=== PATIENT | female | born 1935 | race African-American/Black ===

== ENCOUNTER 2016-08-04 09:04 | Inpatient (IN) | payer MEDICARE ==
--- NOTE | 2016-08-03 17:17 | MH ---
cc: Leigha CAMPBELL M.D. 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 ADMISSION HISTORY AND PHYSICAL This pleasant 80-year-old female is being admitted today for right total knee arthroplasty due to severe painful arthritic degeneration. PAST MEDICAL HISTORY Other past history: 1. The patient has a history of rheumatoid arthritis. 2. Diabetes. 3. Arthritis. 4. Hypertension. 5. Glaucoma. CURRENT MEDICATIONS Include: 1. Fluticasone. 2. Tizanidine. 3. Amlodipine. 4. Lovastatin. 5. Atenolol. 6. Hydrocodone. 7. Lefludamide. 8. Prednisone 5 mg a day. 9. Metformin. 10. Fosamax. 11. Vitamin D. PAST SURGERIES Include: 1. Cataract surgery. 2. . 3. Colonoscopies. 4. Eye surgery. 5. Left total knee arthroplasty. 6. hysterectomy. 7. Myringotomy. REVIEW OF SYSTEMS Noncontributory. FAMILY HISTORY Noncontributory. SOCIAL HISTORY Does not smoke or drink. ALLERGIES HAS ALLERGIES TO LOULOU INHIBITOR, HYDROCHLOROTHIAZIDE, LISINOPRIL, IBUPROFEN, PENICILLIN, AND DICLOFENAC. PHYSICAL EXAMINATION GENERAL: We find a 80-year-old female, well-developed, well-nourished, alert and oriented times three complains of pain her right knee. VITAL SIGNS: Blood pressure 136/72, pulse 85 and regular, respirations 18, temperature 98.4, pulse oximetry 97% on room air. HEENT: Eyes PERRL, EOMI. Ears, nose, mouth clear. NECK: Supple. LUNGS: Clear. HEART: Regular rate. ABDOMEN: Soft. Positive bowel sounds. Nontender. EXTREMITIES: Reveal her right knee to have genu valgus deformity with 5 degrees loss of full extension and 80 degrees of flexion. She is neurovascularly intact to her toes. IMPRESSION At this time is severe painful rheumatoid arthritic degeneration right knee. PLAN Admission for right total knee arthroplasty today. The patient understands the procedure well, understands the use Hibiclens scrub and Bactroban preoperatively and plans on going to rehab after surgery. J. MD OLGA LIDIA Mac/KK /4:44 PM /5:04 PM
[~2016-08-04] VITALS: Ht 162.6 cm; Wt 68.5 kg
[2016-08-06] MEDS ORDERED: TIMO5SOL LEFT EYE (15:50)
[2016-08-06] MEDS ORDERED: METF500T PO (15:50)
[2016-08-06] MEDS ORDERED: ASPI1TAB69 PO (15:50)
[2016-08-06] MEDS ORDERED: PRED5TAB PO (15:50)
[2016-08-06] MEDS ORDERED: D-20TAB3 PO (15:50)
[2016-08-06] MEDS ORDERED: REFR0.5D4 RIGHT EYE (15:50)
[2016-08-06] MEDS ORDERED: FOLI1TAB4 PO (15:50)
[2016-08-06] MEDS ORDERED: LOVA40TA PO (15:50)
[2016-08-09] MEDS: CHLORHEXIDINE GLUCONATE 4% SOLN 120 ML BTL TOPICAL SCH (08:50)
[2016-08-09] MEDS ORDERED: CHLORHEXIDINE GLUCONATE 2 % 1 PACK (2 CLOTHS) TOPICAL PRN (09:15)
[2016-08-09] MEDS ORDERED: VANCOMYCIN 1000 MG/NS 250 ML (for <70 kg) IV SCH ×2 (09:15)
[2016-08-09] MEDS ORDERED: METOPROLOL TARTRATE 25 MG TAB PO PRN (09:15)
[2016-08-09] MEDS ORDERED: LACTATED RINGER'S 1000 ML IV PRN (09:15)
[2016-08-09] MEDS ORDERED: SODIUM CHLORID 0.9% 500 ML IV PRN (09:15)
[2016-08-09] MEDS ORDERED: INSULIN HUMAN REGULAR 1,000 UNITS/10 ML VIAL SQ PRN (09:15)
[2016-08-09] MEDS ORDERED: POVIDONE IODINE 5% (ANTISEPSIS KIT) 4 APPLICATIONS EACH NARE PRN (09:15)
[2016-08-09] MEDS ORDERED: CLINDAMYCIN 900 MG/NS 100 ML IV SCH ×2 (09:15)
[2016-08-09] MEDS ORDERED: PROPOFOL 200 MG/20 ML AMP IV ONE (09:23)
[2016-08-09] MEDS ORDERED: ePHEDrine/NS 25 MG/5 ML SYR IV ONE (09:23)
[2016-08-09] MEDS ORDERED: ONDANSETRON HCL 4 MG/2 ML VIAL IV PUSH ONE (09:24)
[2016-08-09] MEDS ORDERED: LACTATED RINGER'S 1000 ML INJ 1,000 ML IV ONE (09:24)
[2016-08-09] MEDS ORDERED: PHENYLEPH/NS 1000 MCG/10 ML SYR IV ONE (09:24)
[2016-08-09] MEDS ORDERED: NEOSTIGMINE 3 MG/3 ML SYR IV ONE (09:24)
[2016-08-09] MEDS ORDERED: BUPIVACAINE HCL PF 0.5% 30 ML VIAL NERV BLOCK ONE (09:36)
[2016-08-09] MEDS ORDERED: LEFL20TA11 PO (09:44)
[2016-08-09] MEDS ORDERED: HYDR-4107 PO (09:44)
[2016-08-09 09:49] VITALS: BP 149/70; PULSE 84; RESP 20; TEMP 98.1; O2SAT 93
[2016-08-09] MEDS ORDERED: EXPAREL PERI-ARTICULAR INJECTION (TOTAL VOL. 100 ML) P-ARTICULR SCH ×2 (10:00)
[2016-08-09] MEDS ORDERED: TRANEXAMIC ACID IV SCH ×2 (10:00→16:00)
[2016-08-09] MEDS ORDERED: SODIUM CHLORIDE 0.9% IV SCH ×2 (10:00→16:00)
[2016-08-09] MEDS ORDERED: AMLO5TAB2 PO (10:18)
[2016-08-09] MEDS ORDERED: OFLO0.3D9 OT (10:18)
[2016-08-09] MEDS ORDERED: ALEN1TAB48 PO (10:18)
[2016-08-09] MEDS ORDERED: methylPREDNISolone SOD SUCC 125 MG/2 ML VIAL ONE (11:28)
[2016-08-09] MEDS ORDERED: ACETAMINOPHEN 1000 MG/100 ML VIAL IV ONE (11:28)
[2016-08-09] MEDS ORDERED: FAMOTIDINE 20 MG/2 ML VIAL ONE (11:28)
[2016-08-09] MEDS ORDERED: TRANEXAMIC ACID INJ 0 MG in SODIUM CHLORIDE 0.9% INJ 100 ML IV SCH (12:00)
[2016-08-09] MEDS ORDERED: SODIUM CHLORIDE 0.9% FLUSH 5 ML FLUSH IVF PRN (12:00)
[2016-08-09] MEDS ORDERED: ACETAMINOPHEN 325 MG TAB PO PRN (12:00)
[2016-08-09] MEDS ORDERED: MORPHINE SULFATE 30 MG/30 ML PCA IV SCH (12:00)
[2016-08-09] MEDS ORDERED: diphenhydrAMINE HCL 50 MG/ML VIAL IV PRN (12:00)
[2016-08-09] MEDS ORDERED: ALENDRONATE SODIUM 70 MG TAB PO SCH (12:00)
[2016-08-09] MEDS ORDERED: NALOXONE HCL 0.4 MG/ML AMP IV PRN ×2 (12:00)
[2016-08-09] MEDS ORDERED: ONDANSETRON HCL 4 MG/2 ML VIAL IVP PRN (12:00)
[2016-08-09] MEDS ORDERED: Post-op Orders (for Pharmacy) MISC XX ONE (12:00)
[2016-08-09] MEDS ORDERED: ACETAMINOPHEN/HYDROcodone 325 MG/7.5 MG TAB PO PRN (12:00)
[2016-08-09] MEDS ORDERED: CPMMACHINE (12:01)
[2016-08-09] MEDS ORDERED: MISC-163 (12:01)
[2016-08-09] MEDS ORDERED: WALKER WHEELS/F1 MIS (12:02)
[2016-08-09] MEDS ORDERED: MIDAZOLAM HCL 2 MG/2 ML VIAL ONE (12:04)
[2016-08-09] MEDS ORDERED: GENTAMICIN SULFATE 80 MG/2 ML VIAL IRRIGATION ONE (13:34)
[2016-08-09] MEDS ORDERED: PCA - TOTAL MG DILAUDID DELIVERED PER SHIFT SCH (14:00)
[2016-08-09] MEDS ORDERED: MORPHINE SULFATE 4 MG/ML INJ ONE (16:19)
[2016-08-09] MEDS: LACTATED RINGER'S 1000 ML INJ 1,000 ML IV SCH (17:05)
--- NOTE | 2016-08-09 17:12 | RADRPT ---
EXAM DATE/TIME: 08/09/2016 16:38 [place] COMPARISON: No previous studies available for comparison. INDICATIONS : Post operative right knee. MEDICAL HISTORY : None. SURGICAL HISTORY : None. ENCOUNTER: Initial ACUITY: 1 day PAIN SCORE: Non-responsive. LOCATION: Right knee. FINDINGS: AP and lateral views of the right knee obtained and demonstrate patient is status post arthroplasty. The femoral and tibial components are intact and in normal alignment. There are postoperative changes involving the patella. There is anterior soft tissue prominence CONCLUSION: Expected postsurgical changes status post arthroplasty. Brandon Bush MD on August 09, 2016 at 17:10 Board Certified Radiologist. This report was verified electronically.
[2016-08-09] MEDS ORDERED: DO NOT ADM ANY ANTICOAGULANT DRUGS PRN (17:15)
[2016-08-09 20:00] VITALS: BP 130/70; PULSE 82; RESP 17; TEMP 96.6; O2SAT 98
[2016-08-09 20:04] VITALS: O2SAT 93
[2016-08-09] MEDS: SODIUM CHLORIDE 0.9% FLUSH 5 ML FLUSH IVF SCH (21:00)
[2016-08-09] MEDS ORDERED: OFLOXACIN OT SCH (21:00)
[2016-08-09] MEDS ORDERED: TEMAZEPAM 15 MG CAP PO PRN (21:00)
[2016-08-09] MEDS: CHOLECALCIFEROL (VIT D3) 1000 UNIT TAB PO SCH (21:54)
[2016-08-09] MEDS: CARBOXYMETHYLCELL SOD 0.5% OPTH SOLN 15 ML BTL RIGHT EYE SCH (21:54)
[2016-08-09] MEDS: PCA - TOTAL MG MORPHINE DELIVERED PER SHIFT SCH (21:55)
[2016-08-09] MEDS: CLINDAMYCIN INJ 900 MG in SODIUM CHLORIDE 0.9% INJ 100 ML IV SCH (21:55)
[2016-08-10] VITALS (8 sets, daily range): BP systolic 113–144; BP diastolic 54–68; PULSE 75–86; RESP 16–20; TEMP 98.3–99.1; O2SAT 95–100
[2016-08-10] MEDS: LACTATED RINGER'S 1000 ML INJ 1,000 ML IV SCH ×2 (00:21→12:07)
[2016-08-10] MEDS: CLINDAMYCIN INJ 900 MG in SODIUM CHLORIDE 0.9% INJ 100 ML IV SCH ×2 (04:20→12:16)
[2016-08-10] MEDS: PCA - TOTAL MG MORPHINE DELIVERED PER SHIFT SCH ×3 (05:23→20:57)
[2016-08-10 06:56] LABS: HEMATOCRIT 25.7 % (35.0-46.0); REVIEW FLAG FINAL
[2016-08-10] MEDS ORDERED: LEFLUNOMIDE PO SCH (09:00)
[2016-08-10] MEDS: TIMOLOL MALEATE 0.25% OPHT SOLN 5 ML BTL LEFT EYE SCH (09:00)
[2016-08-10] MEDS: SODIUM CHLORIDE 0.9% FLUSH 5 ML FLUSH IVF SCH ×2 (09:00→20:56)
--- NOTE | 2016-08-10 09:02 | PD.CONS ---
HPI Service [facility] Hospitalists Consult Requested By Dr. Rehan Hernandez Reason for Consult Medical Management Primary Care Physician Dr. Norberto Norton Diagnoses: History of Present Illness Mrs. Chappell is a pleasant 80 y/o female with HTN, diabetes, hyperlipidemia and Rheumatoid arthritis. Pt was admitted on 08/09/16 for an elective right total knee arthroplasty with Dr. Hernandez. [facility] Hospitalist team was consulted to help manage the pts chronic medical issues. Pt is seen post-operatively and is without any specific complaints. She reports that her pain is currently controlled. She denies any chest pain, SOB, abd pain, nausea/vomiting. Review of Systems Constitutional: DENIES: Fever, Chills Eyes: DENIES: Vision loss Ears, nose, mouth, throat: DENIES: Hearing loss Respiratory: DENIES: Cough, Shortness of breath Cardiovascular: DENIES: Chest pain, Palpitations, Lower Extremity Edema Gastrointestinal: DENIES: Abdominal pain, Constipation, Diarrhea, Nausea, Vomiting Genitourinary: DENIES: Hematuria Musculoskeletal: COMPLAINS OF: Joint pain Integumentary: DENIES: Rash Neurologic: DENIES: Headache Psychiatric: DENIES: Confusion Past Family Social History Past Medical History HTN Diabetes Hyperlipidemia Rheumatoid arthritis Ostearthritis Glaucoma Past Surgical History Cataract surgery Colonoscopies Left total knee arthroplasty Vaginal hysterectomy Myringotomy Reported Medications -Alendronate (Alendronate Sodium) 70 Mg Tab 70 Mg PO Q7D -Amlodipine 5 Mg PO DAILY -Leflunomide 20 Mg PO DAILY -Aspirin 81 Mg Tabdr 81 Mg PO DAILY -Lovastatin 40 Mg PO DAILY -Metformin 500 Mg PO DAILY -Prednisone 5 Mg PO DAILY -Timolol Opth Drops 0.25 % Soln 1 Drop LEFT EYE DAILY Ofloxacin Otic Drops 0.3 % Drops 3 Drop OT BID Refresh Tears Opth Drops (Carboxymethylcellulose Sodium Opth Drops) 0.5% Drops 1 Drop RIGHT EYE TID D-2000 Maximum Strength (Cholecalciferol) 2,000 Unit Tab 2,000 Units PO BID Hydrocodone-Acetaminophen 5-300 Mg Tab 1 Tab PO Q4H PRN Allergies: Coded Allergies: LOULOU Inhibitors (Verified Adverse Reaction, Severe, Swelling, 08/09/16) Diclofenac (Verified Adverse Reaction, Severe, Swelling, 08/09/16) Hydrochlorothiazide (Verified Adverse Reaction, Severe, Swelling, 08/09/16) Penicillin (Verified Adverse Reaction, Severe, rash and itching, 08/09/16) Uncoded Allergies: NSAID (Adverse Reaction, Severe, Swelling, 07/12/13) Family History Noncontributory Social History Hx of tobacco use Denies any alcohol or illicit drug use Physical Exam Vital Signs Vital Signs Date Time Temp Pulse Resp B/P Pulse Ox O2 Delivery O2 Flow Rate FiO2 08/10/16 08:18 97 Nasal Cannula 2.00 08/10/16 05:23 16 08/10/16 03:45 98.9 79 16 144/63 98 08/10/16 00:30 98.3 81 16 121/63 100 08/09/16 21:55 18 08/09/16 20:04 93 Nasal Cannula 2.00 08/09/16 20:00 96.6 82 17 130/70 98 08/09/16 19:00 84 14 127/68 95 Nasal Cannula 2 08/09/16 18:00 93 14 136/72 94 Nasal Cannula 2 08/09/16 17:44 16 08/09/16 17:00 93 14 136/75 93 Nasal Cannula 2 08/09/16 16:45 93 14 144/77 93 Nasal Cannula 2 08/09/16 16:30 86 14 139/72 95 Nasal Cannula 2 08/09/16 16:15 90 14 140/76 94 Nasal Cannula 2 08/09/16 16:00 98.7 103 14 139/76 91 Nasal Cannula 2 08/09/16 09:49 98.1 84 20 149/70 93 Physical Exam GENERAL: This is a well-nourished, well-developed patient, in no apparent distress. HEENT: Atraumatic. Normocephalic. No temporal or scalp tenderness.No scleral icterus. Airway patent. NECK: Trachea midline, supple, nontender. CARDIO: Regular. RESP: CTA bilaterally. No wheezes, rales, or rhonchi. ABD: +BS, soft, non-tender, nondistended. EXT: Right knee bandages are c/d/i NEURO: Awake and alert. Motor and sensory grossly within normal limits. Normal speech. Laboratory Laboratory Tests Test 08/09/16 08/10/16 12:57 05:35 Blood Type O POSITIVE Antibody Screen NEGATIVE Hemoglobin 8.2 Hematocrit 25.7 Result Diagram: 08/10/16 0535 Imaging Last Impressions Knee X-Ray 08/09/16 1153 Signed Impressions: Service Date/Time: Tuesday, August 09, 2016 16:38 - CONCLUSION: Expected postsurgical changes status post arthroplasty. Brandon Bush MD Assessment and Plan Problem List: (1) Osteoarthritis of right knee Status: Chronic Plan: - Pt s/p right total knee arthroplasty on 08/09/[address] Hernandez - Post-op pain control per Ortho - Constipation precautions - PT daily - IS - DVT prophylaxis (2) Status post total right knee replacement Status: Acute Plan: - See above (3) Hypertension Status: Chronic Plan: - Home meds, Amlodipine, has been resumed - BP is stable - Monitor (4) DM (diabetes mellitus) Status: Chronic Plan: - Metformin was resumed - NovoLog SSI - Accu checks (5) Rheumatoid arthritis Status: Chronic Plan: - Home meds resumed (6) Glaucoma Status: Chronic Assessment and Plan Patient examined. Assessment and plan formulated with Cielo Luu PA-C. I agree with the above. Problem Qualifiers (1) Osteoarthritis of right knee: Qualified Code: M17.11 - Primary osteoarthritis of right knee (2) DM (diabetes mellitus): Cielo Luu Aug 10, 2016 09:02 Juan David Briceno DO August 21, 2016 10:43
[2016-08-10] MEDS: CHLORHEXIDINE GLUCONATE 4% SOLN 120 ML BTL TOPICAL SCH (09:15)
[2016-08-10] MEDS: PRAVASTATIN SOD 40 MG TAB PO SCH (10:07)
[2016-08-10] MEDS: predniSONE 5 MG TAB PO SCH (10:08)
[2016-08-10] MEDS: ASPIRIN EC 81 MG TABEC PO SCH (10:08)
[2016-08-10] MEDS: CHOLECALCIFEROL (VIT D3) 1000 UNIT TAB PO SCH ×2 (10:08→20:56)
[2016-08-10] MEDS: metFORMIN HCL 500 MG TAB PO SCH (10:08)
[2016-08-10] MEDS: amLODIPine BESYLATE 5 MG TAB PO SCH (10:08)
[2016-08-10] MEDS: CARBOXYMETHYLCELL SOD 0.5% OPTH SOLN 15 ML BTL RIGHT EYE SCH ×3 (10:09→17:08)
[2016-08-10] MEDS: INSULIN ASPART SUPPLEMENTAL SCALE SQ SCH ×3 (11:00→20:57)
--- NOTE | 2016-08-10 12:53 | PD.ORT.PN ---
Subjective Subjective Remarks pt fairly comfortable. Objective Vitals Vital Signs Date Time Temp Pulse Resp B/P Pulse Ox O2 Delivery O2 Flow Rate FiO2 08/10/16 12:05 17 08/10/16 08:18 97 Nasal Cannula 2.00 08/10/16 08:00 98.9 75 19 124/58 97 08/10/16 05:23 16 08/10/16 03:45 98.9 79 16 144/63 98 08/10/16 00:30 98.3 81 16 121/63 100 08/09/16 21:55 18 08/09/16 20:04 93 Nasal Cannula 2.00 08/09/16 20:00 96.6 82 17 130/70 98 08/09/16 19:00 84 14 127/68 95 Nasal Cannula 2 08/09/16 18:00 93 14 136/72 94 Nasal Cannula 2 08/09/16 17:44 16 08/09/16 17:00 93 14 136/75 93 Nasal Cannula 2 08/09/16 16:45 93 14 144/77 93 Nasal Cannula 2 08/09/16 16:30 86 14 139/72 95 Nasal Cannula 2 08/09/16 16:15 90 14 140/76 94 Nasal Cannula 2 08/09/16 16:00 98.7 103 14 139/76 91 Nasal Cannula 2 I/O 08/09/16 08/09/16 08/09/16 08/10/16 08/10/16 08/10/16 07:00 15:00 23:00 07:00 15:00 23:00 Intake Total 1730 ml 240 ml 1842 ml Output Total 625 ml Balance 1105 ml 240 ml 1842 ml Intake Oral 530 ml 240 ml IV Total 200 ml 1842 ml Other 1000 ml Output Urine Total 475 ml Estimated Blood Loss 150 ml # Voids 3 # Bowel Movements 0 0 Result Diagram: 08/10/16 0535 Objective Remarks dressing dry and intact. No calf tenderness. Assessment & Plan Ortho Post Op Day #: 1 Problem List: Assessment and Plan OOB, PT, wound care. Leigha Hernandez MD Aug 10, 2016 12:53
[2016-08-10] MEDS: ENOXAPARIN SODIUM 30 MG/0.3 ML SYRINGE SQ SCH (15:12)
[2016-08-10] MEDS: ACETAMINOPHEN/HYDROcodone 325 MG/7.5 MG TAB PO PRN (15:12)
[2016-08-10] MEDS: DOCUSATE SODIUM 100 MG CAP PO SCH (20:56)
[2016-08-10] MEDS: MULTIVITAMINS/MINERALS THERAPEUTIC TAB PO SCH (20:56)
--- NOTE | 2016-08-10 22:08 | MP ---
cc: Jim HERNANDEZ. DATE OF SURGERY: 08/09/2016 PREOPERATIVE DIAGNOSIS: Severe rheumatoid arthritic degeneration with genu valgus deformity, right knee, loss of motion. POSTOPERATIVE DIAGNOSIS: Severe rheumatoid arthritic degeneration with genu valgus deformity, right knee, loss of motion. OPERATION: Right total knee arthroplasty using Consensus knee system, size 4 femur, 2 tibia, 10 standard insert with a #2 7.5 patella, two batches of cobalt blue cement along with lysis of adhesions and excision of osteophytes from right knee to allow increased motion. Preoperative range of motion was 45 degrees of flexion to minus 20 degrees of extension. SURGEON: Dr. Rehan Hernandez ANESTHESIA: General intubation and block. [place] DECORATOR: NATHANIEL Sanchez PROCEDURE: After successful induction of anesthesia, the patient is placed on the operating room table in the supine position. The knee is prepped and draped in the usual manner. A tourniquet is inflated at the upper thigh and set to 300 mmHg pressure after exsanguination of the lower extremity. A longitudinal incision is made extending from 3 inches proximal to the superior pole of the patella, across the patella in longitudinal fashion, and down past the insertion of the tibial tubercle into the proximal tibia. The incision is carried down through subcutaneous tissue along the medial aspect of the patella and retinaculum, down through the capsule to expose the knee joint. The patella and patellar tendon are freed up enough to allow the patella to be inverted and retracted off the lateral side of the knee joint. The knee joint is left exposed. Small osteophytes are removed. All soft tissue is removed to allow proper position of the femoral and tibial cutting jig guide. The first femoral jig is then inserted along the distal end of the femur after first measuring to decide whether this is a small, medium, or large component. The notch is then drilled and the tibial cutting guide inserted into the femoral cutting guide, along with the ankle brace to allow for proper measurement of the tibial cutting surface that needed to be resected. Pins are inserted into the tibial cutting jig and femoral cutting jig to hold them in place. An oscillating saw is then used to resect the surface of the tibia. The surface of the tibia is then completely removed using sharp and blunt dissection. The anterior and posterior cuts of the femur are then made as well using an oscillating saw through the cutting guide. All guides are then removed and the varus/valgus angulation cutting guide applied to the femur for proper measurement of the proper amount of valgus. The anterior cutting guide for the femur is then inserted at the anterior femoral cuts made. Next, the first block trial is inserted into the femur to allow for proper condyle drill holes to be made which are then made followed by removal of the bone between the condyles using an oscillating saw as well as the bone removed at the most posterior surface of the condyle. After this, the guide is removed and the chamfer cuts made using the chamfer cutting guide from both anterior and posterior. Next, the femoral trial is then inserted, the tibial surface reflected anterior to expose the tibial surface and a tibial stem guide is inserted after first measuring for a standard, standard plus, large, or large plus surface to be used. After the stem is impacted the trial tibial surface is applied followed by the trial meniscal components. After full range of motion is found with the appropriate length meniscal components varying the patella is prepared by resecting the posterior aspect of the patella using an oscillating saw, inserting a trial. The trial is then removed and the cruciate cutting guide applied using the bur to cut the cruciate cuts. After cruciate cuts are made all trials are removed. The wound is irrigated copiously with antibiotic solution and Water Pik and the actual components inserted into place using: Consensus knee system, size 4 femur, 2 tibia, 10 standard insert with a #2 7.5 patella, two batches of cobalt blue cement. After the cement has hardened and the components are found to have full range of motion with no instability, the tourniquet is only used for cementing, total tourniquet time being 12 minutes at 300 mmHg pressure. Meticulous hemostasis achieved, 120 cc of Exparel used on the knee for extra pain control. The deep fascia approximated with running #2 Quill, subcutaneous tissue approximated using interrupted running 2 and 4-0 Monocryl suture and Steri-Strips, sterile dressing and knee immobilizer. During the procedure to increase the range of motion, the patient had to have medial collateral ligament released, the lateral collateral ligament, the posterior capsule had to be released as well as the posterior cruciate ligament to allow increase in motion. This necessitated an extra 45 minutes of surgical time. The deep fascia approximated with running #2 Quill, subcutaneous tissue approximated using interrupted running, 2-0 Monocryl suture, Steri-Strips, sterile dressing and knee immobilizer. No drain utilized. Estimated blood loss 150 cc. Sponge and suture count correct. The patient tolerated the procedure well and left the operating room in satisfactory condition. J. MD OLGA LIDIA Mac/ANUPAM /3:40 PM /9:45 PM
[2016-08-11 00:43] VITALS: BP 161/71; PULSE 106; RESP 17; TEMP 96.3; O2SAT 95
[2016-08-11] MEDS: LACTATED RINGER'S 1000 ML INJ 1,000 ML IV SCH ×3 (01:23→20:35)
[2016-08-11] MEDS: ENOXAPARIN SODIUM 30 MG/0.3 ML SYRINGE SQ SCH ×2 (03:08→14:51)
[2016-08-11] MEDS: PCA - TOTAL MG MORPHINE DELIVERED PER SHIFT SCH ×3 (04:12→20:35)
[2016-08-11] MEDS: INSULIN ASPART SUPPLEMENTAL SCALE SQ SCH ×4 (06:43→20:35)
[2016-08-11] MEDS: ACETAMINOPHEN/HYDROcodone 325 MG/7.5 MG TAB PO PRN ×4 (06:50→20:21)
[2016-08-11 06:53] LABS: HEMATOCRIT 26.3 % (35.0-46.0); REVIEW FLAG FINAL
[2016-08-11 08:00] VITALS: BP 131/59; PULSE 102; RESP 18; TEMP 99.1; O2SAT 93
--- NOTE | 2016-08-11 08:09 | PD.ORT.PN ---
Subjective Subjective Remarks pt fairly comfortable. Objective Vitals Vital Signs Date Time Temp Pulse Resp B/P Pulse Ox O2 Delivery O2 Flow Rate FiO2 08/11/16 00:43 96.3 106 17 161/71 95 08/10/16 19:33 98.3 86 18 128/68 96 08/10/16 18:18 95 Nasal Cannula 2.00 08/10/16 17:00 99.1 82 20 113/54 95 08/10/16 12:05 17 08/10/16 12:00 98.9 76 19 127/62 98 08/10/16 08:18 97 Nasal Cannula 2.00 I/O 08/10/16 08/10/16 08/10/16 08/11/16 08/11/16 08/11/16 07:00 15:00 23:00 07:00 15:00 23:00 Intake Total 240 ml 3242 ml 360 ml 480 ml Balance 240 ml 3242 ml 360 ml 480 ml Intake Oral 240 ml 1400 ml 360 ml 480 ml IV Total 1842 ml # Voids 3 5 4 3 # Bowel Movements 0 0 0 0 Result Diagram: 08/11/16 0550 Objective Remarks dressing dry and intact. No calf tenderness. In bed at moment. Assessment & Plan Ortho Post Op Day #: 2 Problem List: Assessment and Plan OOB, PT, wound care. Leigha Hernandez MD Aug 11, 2016 08:09
[2016-08-11] MEDS: SODIUM CHLORIDE 0.9% FLUSH 5 ML FLUSH IVF SCH ×2 (09:00→20:22)
[2016-08-11] MEDS: TIMOLOL MALEATE 0.25% OPHT SOLN 5 ML BTL LEFT EYE SCH (09:00)
[2016-08-11] MEDS: CHOLECALCIFEROL (VIT D3) 1000 UNIT TAB PO SCH ×2 (09:17→20:22)
[2016-08-11] MEDS: ASPIRIN EC 81 MG TABEC PO SCH (09:18)
[2016-08-11] MEDS: MULTIVITAMINS/MINERALS THERAPEUTIC TAB PO SCH ×2 (09:18→20:22)
[2016-08-11] MEDS: metFORMIN HCL 500 MG TAB PO SCH (09:18)
[2016-08-11] MEDS: amLODIPine BESYLATE 5 MG TAB PO SCH (09:18)
[2016-08-11] MEDS: predniSONE 5 MG TAB PO SCH (09:18)
[2016-08-11] MEDS: PRAVASTATIN SOD 40 MG TAB PO SCH (09:18)
[2016-08-11] MEDS: DOCUSATE SODIUM 100 MG CAP PO SCH ×2 (09:18→20:22)
[2016-08-11] MEDS: CARBOXYMETHYLCELL SOD 0.5% OPTH SOLN 15 ML BTL RIGHT EYE SCH ×3 (09:19→18:00)
[2016-08-11] MEDS ORDERED: BACITRACIN OINT 0.9 GM PKT TOP PRN (10:15)
[2016-08-11 12:00] VITALS: BP 131/62; PULSE 96; RESP 18; TEMP 96.1; O2SAT 94
[2016-08-11] MEDS ORDERED: LACTULOSE SYRUP 20 GM/30 ML CUP PO PRN (15:30)
[2016-08-11 15:54] VITALS: BP 114/52; PULSE 87; RESP 14; TEMP 99.4; O2SAT 98
[2016-08-11 20:12] VITALS: BP 125/61; PULSE 87; RESP 17; TEMP 98.3; O2SAT 92
[2016-08-12] VITALS (7 sets, daily range): BP systolic 110–142; BP diastolic 54–74; PULSE 62–113; RESP 16–18; TEMP 97–99.4; O2SAT 93–98
[2016-08-12] MEDS: PCA - TOTAL MG MORPHINE DELIVERED PER SHIFT SCH ×3 (00:58→21:01)
[2016-08-12] MEDS: ENOXAPARIN SODIUM 30 MG/0.3 ML SYRINGE SQ SCH ×2 (03:42→13:26)
[2016-08-12] MEDS: INSULIN ASPART SUPPLEMENTAL SCALE SQ SCH ×4 (06:15→21:01)
[2016-08-12] MEDS ORDERED: BISACODYL 10 MG SUPP RECTAL PRN (07:45)
[2016-08-12] MEDS: SODIUM CHLORIDE 0.9% FLUSH 5 ML FLUSH IVF SCH ×2 (09:00→21:00)
[2016-08-12] MEDS: CARBOXYMETHYLCELL SOD 0.5% OPTH SOLN 15 ML BTL RIGHT EYE SCH ×3 (09:00→17:41)
[2016-08-12] MEDS: TIMOLOL MALEATE 0.25% OPHT SOLN 5 ML BTL LEFT EYE SCH (09:00)
[2016-08-12] MEDS: amLODIPine BESYLATE 5 MG TAB PO SCH (09:07)
[2016-08-12] MEDS: metFORMIN HCL 500 MG TAB PO SCH (09:07)
[2016-08-12] MEDS: predniSONE 5 MG TAB PO SCH (09:07)
[2016-08-12] MEDS: CHOLECALCIFEROL (VIT D3) 1000 UNIT TAB PO SCH ×2 (09:07→21:01)
[2016-08-12] MEDS: ASPIRIN EC 81 MG TABEC PO SCH (09:08)
[2016-08-12] MEDS: DOCUSATE SODIUM 100 MG CAP PO SCH ×2 (09:08→21:01)
[2016-08-12] MEDS: MULTIVITAMINS/MINERALS THERAPEUTIC TAB PO SCH ×2 (09:08→21:01)
[2016-08-12] MEDS: ACETAMINOPHEN/HYDROcodone 325 MG/7.5 MG TAB PO PRN (09:08)
[2016-08-12] MEDS: PRAVASTATIN SOD 40 MG TAB PO SCH (09:08)
--- NOTE | 2016-08-12 10:28 | PD.ORT.PN ---
Subjective Subjective Remarks pt fairly comfortable. She is concerned about her oxygen levels. They are running low. Objective Vitals Vital Signs Date Time Temp Pulse Resp B/P Pulse Ox O2 Delivery O2 Flow Rate FiO2 08/12/16 04:48 98.1 90 18 133/66 94 08/12/16 00:43 99.4 90 17 123/60 95 08/11/16 20:12 98.3 87 17 125/61 92 08/11/16 18:51 Room Air 08/11/16 15:54 99.4 87 14 114/52 98 08/11/16 12:00 96.1 96 18 131/62 94 I/O 08/11/16 08/11/16 08/11/16 08/12/16 08/12/16 08/12/16 07:00 15:00 23:00 07:00 15:00 23:00 Intake Total 480 ml 1200 ml 480 ml 240 ml Balance 480 ml 1200 ml 480 ml 240 ml Intake Oral 480 ml 1200 ml 480 ml 240 ml # Voids 3 3 2 2 # Bowel Movements 0 0 0 0 Result Diagram: 08/11/16 0550 Objective Remarks dressing dry and intact. No calf tenderness. In chair today. She still has oxygen attachments and this was taken off her for a while to recheck her oxygen level. At the moment is not done. Her daughter is in the room with her. Assessment & Plan Ortho Post Op Day #: 3 Problem List: Assessment and Plan OOB, PT, wound care. Encourage deep breathing and coughing. Plan is for her to go to custodial facility when okay with medical and when her oxygen levels are stabilized. Leigha Hernandez MD Aug 12, 2016 10:28
[2016-08-12] MEDS ORDERED: HYDR-3580 PO (10:30)
[2016-08-12] MEDS: LACTATED RINGER'S 1000 ML INJ 1,000 ML IV SCH (14:53)
[2016-08-13 00:39] VITALS: BP 133/60; PULSE 100; RESP 18; TEMP 100.8; O2SAT 94
[2016-08-13] MEDS: ACETAMINOPHEN/HYDROcodone 325 MG/7.5 MG TAB PO PRN ×4 (00:53→18:04)
[2016-08-13] MEDS: LACTATED RINGER'S 1000 ML INJ 1,000 ML IV SCH ×2 (03:23→15:53)
[2016-08-13] MEDS: ENOXAPARIN SODIUM 30 MG/0.3 ML SYRINGE SQ SCH ×2 (03:36→15:15)
[2016-08-13] MEDS: PCA - TOTAL MG MORPHINE DELIVERED PER SHIFT SCH ×2 (03:36→14:00)
[2016-08-13 04:00] VITALS: TEMP 99.8
[2016-08-13] MEDS: INSULIN ASPART SUPPLEMENTAL SCALE SQ SCH ×3 (06:43→17:04)
[2016-08-13 07:45] VITALS: BP 135/62; PULSE 94; RESP 17; TEMP 98.3; O2SAT 94
[2016-08-13] MEDS: CHOLECALCIFEROL (VIT D3) 1000 UNIT TAB PO SCH (07:56)
[2016-08-13] MEDS: predniSONE 5 MG TAB PO SCH (07:56)
[2016-08-13] MEDS: PRAVASTATIN SOD 40 MG TAB PO SCH (07:56)
[2016-08-13] MEDS: DOCUSATE SODIUM 100 MG CAP PO SCH (07:56)
[2016-08-13] MEDS: metFORMIN HCL 500 MG TAB PO SCH (07:56)
[2016-08-13] MEDS: ASPIRIN EC 81 MG TABEC PO SCH (07:57)
[2016-08-13] MEDS: MULTIVITAMINS/MINERALS THERAPEUTIC TAB PO SCH (07:57)
[2016-08-13] MEDS: amLODIPine BESYLATE 5 MG TAB PO SCH (07:57)
[2016-08-13] MEDS: SODIUM CHLORIDE 0.9% FLUSH 5 ML FLUSH IVF SCH (09:00)
[2016-08-13] MEDS: TIMOLOL MALEATE 0.25% OPHT SOLN 5 ML BTL LEFT EYE SCH (09:00)
[2016-08-13] MEDS: CARBOXYMETHYLCELL SOD 0.5% OPTH SOLN 15 ML BTL RIGHT EYE SCH ×3 (09:00→17:04)
--- NOTE | 2016-08-13 09:14 | PD.ORT.PN ---
Subjective Subjective Remarks pt fairly comfortable. No complaints today. Objective Vitals Vital Signs Date Time Temp Pulse Resp B/P Pulse Ox O2 Delivery O2 Flow Rate FiO2 08/13/16 07:45 98.3 94 17 135/62 94 08/13/16 04:00 99.8 08/13/16 00:39 100.8 100 18 133/60 94 08/12/16 21:01 18 08/12/16 20:00 98.4 96 17 114/54 95 08/12/16 18:48 Room Air 08/12/16 16:00 97.0 88 16 110/63 98 08/12/16 12:00 97.0 101 16 119/60 97 08/12/16 10:46 113 93 I/O 08/12/16 08/12/16 08/12/16 08/13/16 08/13/16 08/13/16 07:00 15:00 23:00 07:00 15:00 23:00 Intake Total 240 ml 480 ml 720 ml 240 ml Balance 240 ml 480 ml 720 ml 240 ml Intake Oral 240 ml 480 ml 720 ml 240 ml # Voids 2 4 1 # Bowel Movements 0 2 Result Diagram: 08/11/16 0550 Objective Remarks dressing dry and intact. No calf tenderness. In chair today. Assessment & Plan Ortho Post Op Day #: 4 Problem List: Assessment and Plan OOB, PT, wound care. SNF today. Leigha Hernandez MD Aug 13, 2016 09:14
--- NOTE | 2016-08-13 09:37 | HHI.DS ---
Discharge Summary Admission Date Aug 09, 2016 at 08:32 Discharge Date: Aug 13, 2016 Admitting Diagnosis Osteoarthritic degeneration right knee Diagnosis: (1) Status post total right knee replacement Diagnosis: Principal Brief History This is a 80 year old female patient CBC/BMP: 08/11/16 0550 Significant Findings Laboratory Tests Test 08/11/16 05:50 Hemoglobin 8.8 GM/DL (11.6-15.3) Hematocrit 26.3 % (35.0-46.0) PE at Discharge dressing dry and intact. No calf tenderness. In chair today. Hospital Course Patient underwent a right total knee arthroplasty on day of admission. She received a course of prophylactic IV antibiotics and within 23 hours started on anticoagulation therapy. She continued to improve and low-grade temperature and progressed with physical therapy. Pain pump was stopped within 24 hours and she tolerated by mouth pain meds well. She tolerated food and fluids well. She was discharged on the fourth postoperative day [facility] good condition [facility] condition with instructions for follow-up in the office for recheck. Pt Condition on Discharge: Good Discharge Disposition: Discharge to SNF Discharge Instructions Diet Instructions: Heart Healthy Diet Activities You Can Perform: Full Weight Bearing, Shower Only-No Bath Activities to Avoid: Bathing, Driving Leigha Hernandez MD Aug 13, 2016 09:37
[2016-08-13 11:33] VITALS: BP 127/57; PULSE 91; RESP 17; TEMP 98.3; O2SAT 93
[2016-08-13 16:00] VITALS: BP 135/63; PULSE 100; RESP 18; TEMP 97.4; O2SAT 95
== END 2016-08-13 18:27 | DRG 470 ==
LOC: HSDI 08-09 08:32 → N06B 08-09 19:21
PROVIDERS: ADMIT Surgery; ATTEND Surgery
PROC: 0SRC0J9 Replacement of Right Knee Joint with Synthetic Substitute, Cemented, Open Approach (ICD-10-PCS; principal; 2016-08-09 11:26)
DX: M06.9 Rheumatoid arthritis, unspecified (principal); E11.9 Type 2 diabetes mellitus without complications; I10 Essential (primary) hypertension; M21.061 Valgus deformity, not elsewhere classified, right knee; R26.81 Unsteadiness on feet; E78.5 Hyperlipidemia, unspecified; M17.11 Unilateral primary osteoarthritis, right knee; H40.9 Unspecified glaucoma; Z87.891 Personal history of nicotine dependence; Z96.652 Presence of left artificial knee joint
CPT/HCPCS: 73560; 82948; 85014; 85018; 86850; 86900; 86901; 94150; C1776; C9290; J0131; J1580; J1650; J1815; J2250; J2270; J2370; J2405; J2710; J2930; J3010; J3370; J7050; J7120; J7512; L1830

== ENCOUNTER 2017-02-21 04:56 | Emergency (ER) | payer MEDICARE ==
[~2017-02-21] VITALS: Ht 160 cm; Wt 72.0 kg
[~2017-02-21 04:56] MED LIST: ALEN1TAB48 PO; AMLO5TAB2 PO; ASPI1TAB69 PO; CPMMACHINE; D-20TAB3 PO; HYDR-3580 PO; LEFL20TA11 PO; LOVA40TA PO; METF500T PO; MISC-163; OFLO0.3D9 OT; PRED5TAB PO; REFR0.5D4 RIGHT EYE; TIMO5SOL LEFT EYE; WALKER WHEELS/F1 MIS
[2017-02-21 05:00] VITALS: BP 180/81; PULSE 88; RESP 16; TEMP 98.4; O2SAT 97
[2017-02-21] MEDS ORDERED: ACETAMINOPHEN/CODEINE 300 MG/30 MG TAB PO ONE (05:45)
[2017-02-21] MEDS ORDERED: ACETAMIN 325 MG/BUTALBITAL 50 MG/CAFFEINE 40 MG TAB PO ONE (05:45)
--- NOTE | 2017-02-21 05:48 | PD ---
HPI Chief Complaint: Headache Time Seen by Provider: 05:24 Travel History International Travel<30 days: No Contact w/Intl Traveler<30days: No Traveled to known affect area: No History of Present Illness HPI Patient is a 81-year-old female for 4 days she has had left-sided neck pain left -sided scalp pain and left-sided upper neck pain she said is reproducible it is worse when she moves it is worse when she turns over to get out of bed in the morning patient has not taken anything for the pain movement makes it worse she denies shortness of breath she denies left chest pain patient has a history of hypertension she also has a history of diabetes which she takes metformin 500 mg once a day she is not pale she is not diaphoretic she is not short of breath exam is all muscular skeletal reproducible PFSH Past Medical History Arthritis: Yes (RHEUMATOID ) Asthma: No Depression: Yes Heart Rhythm Problems: No Cancer: No Cardiac Catheterization: No Cardiovascular Problems: Yes ([place]) High Cholesterol: No Chest Pain: No Congestive Heart Failure: No COPD: No Cerebrovascular Accident: No Diabetes: Yes (TYPE 2, NIDDM) Patient Takes Glucophage: Yes Diminished Hearing: Yes ([place]) Endocrine: No Gastrointestinal Disorders: No Glaucoma: No Genitourinary: No Hepatitis: No Hiatal Hernia: No Hypertension: Yes Immune Disorder: Yes (RA) Kidney Stones: No Musculoskeletal: Yes (RA, RIGHT KNEE PAIN) Neurologic: No Psychiatric: No Reproductive: No Respiratory: No Migraines: No Renal Failure: No Seizures: No Sleep Apnea: No Thyroid Disease: No Ulcer: No Menopausal: Yes Past Surgical History Abdominal Surgery: No Body Medical Devices: RIGHT EAR TUBE Cardiac Surgery: No Coronary Artery Bypass Graft: No Ear Surgery: Yes (RIGHT EAR TUBE) Endocrine Surgery: No Eye Surgery: Yes (BILATERAL CATARACTS) Genitourinary Surgery: No Gynecologic Surgery: Yes Hysterectomy: Yes Joint Replacement: Yes (BILAT KNEES) Oral Surgery: No Pacemaker: No Thoracic Surgery: No Other Surgery: Yes Social History Alcohol Use: No Tobacco Use: No Substance Use: No Allergies-Medications (Allergen,Severity, Reaction): Coded Allergies: benazepril (Unverified Adverse Reaction, Severe, Swelling, 02/21/17) captopril (Unverified Adverse Reaction, Severe, Swelling, 02/21/17) diclofenac (Unverified Adverse Reaction, Severe, Swelling, 02/21/17) enalaprilat (Unverified Adverse Reaction, Severe, Swelling, 02/21/17) fosinopril (Unverified Adverse Reaction, Severe, Swelling, 02/21/17) hydrochlorothiazide (Unverified Adverse Reaction, Severe, Swelling, ) lisinopril (Unverified Adverse Reaction, Severe, Swelling, 02/21/17) penicillin G (Unverified Adverse Reaction, Severe, rash and itching, ) quinapril (Unverified Adverse Reaction, Severe, Swelling, 02/21/17) Uncoded Allergies: NSAID (Adverse Reaction, Severe, Swelling, 07/12/13) Reported Meds & Prescriptions Reported Meds & Active Scripts Active Fioricet-Codeine (Idqfsyavku-Loegyxeazghip-Bjpwsuyf-Codeine) 03-428-42-30 Mg Cap 1-2 Cap PO Q6HR PRN Do not exceed 6 capsules/day. Valium (Diazepam) 2 Mg Tab 2 Mg PO TID PRN Hydrocodone-Acetaminophen 7.5-325 mg Tab 1 Tab PO Q4H PRN Reported Aspirin Children's (Aspirin) 81 Mg Chew 81 Mg PO DAILY Alendronate (Alendronate Sodium) 70 Mg Tab 70 Mg PO Q7D Ofloxacin Otic Drops 0.3 % Drops 3 Drop OT BID Amlodipine (Amlodipine Besylate) 5 Mg Tab 5 Mg PO DAILY Leflunomide 10 Mg Tab 20 Mg PO DAILY D-2000 Maximum Strength (Cholecalciferol) 2,000 Unit Tab 2,000 Units PO BID Lovastatin 40 Mg Tab 40 Mg PO DAILY Metformin (Metformin HCl) 500 Mg Tab 500 Mg PO DAILY With a meal Prednisone 5 Mg Tab 5 Mg PO DAILY Refresh Tears Opth Drops (Carboxymethylcellulose Sodium Opth Drops) 0.5% Drops 1 Drop RIGHT EYE TID Review of Systems Except as stated in HPI: all other systems reviewed are Neg Musculoskeletal: Positive: Myalgias, Arthralgias, Pain (reproducible left scalp and neck pain pressure points in the occiput reproduces the pain) Physical Exam Narrative Patient has reproducible neck muscle and scalp muscle pain and torticollis-like pain worse with motion worse with palpation after Fioricet and Tylenol No. 3 her pain is reduced her pressure comes down to 147/70 she is improved with the laxation of the muscles I will discharge her with scripts Tylenol codeine as well as some Valium for the next few days to follow-up with her doctor return if worse Data Data Last Documented VS Vital Signs Date Time Temp Pulse Resp B/P (MAP) Pulse Ox O2 Delivery O2 Flow Rate FiO2 02/21/17 06:30 56 16 147/66 (93) 100 Room Air 02/21/17 05:00 98.4 Orders Orders Tsyi-Wewgc-Mqta 325-50-40 Mg (Fioricet 3 (02/21/17 05:45) Acetamin-Codeine 300-30 Mg (Tylenol-Code (02/21/17 05:45) Electrocardiogram (02/21/17 ) MDM Medical Decision Making Medical Screen Exam Complete: Yes Emergency Medical Condition: Yes Differential Diagnosis tension headache causing elevated BP or HTN causing headache Narrative Course Tylenol with Codeine improve the headache she agrees that it is muscular I discharge her with Fioricet with codeine and Valium pills to take as needed the next 2 days if worse return to ER Diagnosis Primary Impression: Tension headache Additional Impression: Torticollis, acquired Patient Instructions: General Instructions, Spasmodic Torticollis (ED) Scripts Xytuviexew-Ivubhvcitrxuw-Qcusqovg-Codeine (Fioricet-Codeine) 10-046-44-30 Mg Cap 1-2 CAP PO Q6HR Y for HEADACHE, #15 CAP 0 Refills Do not exceed 6 capsules/day. Prov: Farhan Montoya MD 02/21/17 Diazepam (Valium) 2 Mg Tab 2 MG PO TID Y for MUSCLE SPASM, #15 TAB 0 Refills Prov: Farhan Montoya MD 02/21/17 Disposition: 01 DISCHARGE HOME Condition: Good Farhan Montoya MD Feb 21, 2017 05:48
[2017-02-21 05:53] VITALS: BP 170/77; PULSE 79; RESP 16; O2SAT 98
[2017-02-21] MEDS ORDERED: ASPI81CH7 PO (05:53)
[2017-02-21 06:30] VITALS: BP 147/66; PULSE 56; RESP 16; O2SAT 100
[2017-02-21] MEDS ORDERED: BUTA1CAP2 PO (06:46)
[2017-02-21] MEDS ORDERED: DIAZ2 PO (06:46)
--- NOTE | 2017-02-21 08:15 | EKG ---
Date Performed: 02/21/2017 Time Performed: 05:18:06 PTAGE: 81 years EKG: Sinus rhythm MINIMAL VOLTAGE CRITERIA FOR LVH, CONSIDER NORMAL VARIANT BORDERLINE ECG PREVIOUS TRACING : 01/07/2016 01.37 No significant change from previous tracing noted. DOCTOR: Alen Kiran Interpretating Date/Time 02/21/2017 08:13:40
== END 2017-02-21 07:40 | disposition home or self-care (01) ==
LOC: NEPC 04:56
DX: G44.209 Tension-type headache, unspecified, not intractable (principal); M43.6 Torticollis; E11.9 Type 2 diabetes mellitus without complications; I10 Essential (primary) hypertension; Z79.84 Long term (current) use of oral hypoglycemic drugs
CPT/HCPCS: 93005; 99284

== ENCOUNTER 2017-10-06 07:24 | Emergency (ER) | payer MEDICARE, OTHER ==
[~2017-10-06] VITALS: Ht 160 cm; Wt 75.0 kg
[~2017-10-06 07:24] MED LIST changes: -ASPI1TAB69 PO; +ASPI81CH7 PO; +BUTA1CAP2 PO; -CPMMACHINE; +DIAZ2 PO; -MISC-163; -TIMO5SOL LEFT EYE; -WALKER WHEELS/F1 MIS
[2017-10-06 07:27] VITALS: BP 169/80; PULSE 82; RESP 16; TEMP 98.8; O2SAT 98
[2017-10-06] MEDS ORDERED: SODIUM CHLOR 0.9% 1000 ML INJ 1,000 ML IV SCH (07:59)
[2017-10-06] MEDS ORDERED: SODIUM CHLORIDE 0.9% FLUSH 10 ML FLUSH IV FLUSH PRN (08:00)
--- NOTE | 2017-10-06 08:03 | PD ---
HPI Chief Complaint: Hypertension Time Seen by Provider: 07:34 Travel History International Travel<30 days: No Contact w/Intl Traveler<30days: No Traveled to known affect area: No History of Present Illness HPI 81-year-old female with PMH of HTN, DM, RA presents the ED for evaluation of elevated blood pressure and elevated blood glucose upon waking this morning. Patient states that she took her Bp with a wrist monitor and it was 180/80. She also states that she checked her blood glucose and it was over 300. The patient has not taken her daily medications. She reports "feeling light as a feather." She denies headache, dizziness, vision changes, chest pain, palpitations, shortness of breath, cough, abdominal pain, nausea, vomiting, changes in bowel habits, dysuria. She reports urinary urgency which she attributes to diabetes. She is followed by Dr. Blood. [facility] Past Medical History Arthritis: Yes (RHEUMATOID ) Asthma: No Depression: Yes Heart Rhythm Problems: No Cancer: No Cardiac Catheterization: No Cardiovascular Problems: Yes ([place]) High Cholesterol: No Chest Pain: No Congestive Heart Failure: No COPD: No Cerebrovascular Accident: No Diabetes: Yes Diminished Hearing: Yes ([place]) Endocrine: No Gastrointestinal Disorders: No Glaucoma: No Genitourinary: No Hepatitis: No Hiatal Hernia: No Hypertension: Yes Immune Disorder: Yes (RA) Kidney Stones: No Musculoskeletal: Yes (RA, RIGHT KNEE PAIN) Neurologic: No Psychiatric: No Reproductive: No Respiratory: No Migraines: No Renal Failure: No Seizures: No Sleep Apnea: No Thyroid Disease: No Ulcer: No ?: Not Menopausal: Yes Past Surgical History Abdominal Surgery: No Body Medical Devices: RIGHT EAR TUBE Cardiac Surgery: No Coronary Artery Bypass Graft: No Ear Surgery: Yes (RIGHT EAR TUBE) Endocrine Surgery: No Eye Surgery: Yes (BILATERAL CATARACTS) Genitourinary Surgery: No Gynecologic Surgery: Yes Hysterectomy: Yes Joint Replacement: Yes (BILAT KNEES) Oral Surgery: No Pacemaker: No Thoracic Surgery: No Other Surgery: Yes Social History Alcohol Use: No Tobacco Use: No Substance Use: No Allergies-Medications (Allergen,Severity, Reaction): Coded Allergies: benazepril (Unverified Adverse Reaction, Severe, Swelling, 10/06/17) captopril (Unverified Adverse Reaction, Severe, Swelling, 10/06/17) diclofenac (Unverified Adverse Reaction, Severe, Swelling, 10/06/17) enalaprilat (Unverified Adverse Reaction, Severe, Swelling, 10/06/17) fosinopril (Unverified Adverse Reaction, Severe, Swelling, 10/06/17) hydrochlorothiazide (Unverified Adverse Reaction, Severe, Swelling, ) lisinopril (Unverified Adverse Reaction, Severe, Swelling, 10/06/17) penicillin G (Unverified Adverse Reaction, Severe, rash and itching, ) quinapril (Unverified Adverse Reaction, Severe, Swelling, 10/06/17) Uncoded Allergies: NSAID (Adverse Reaction, Severe, Swelling, 07/12/13) Reported Meds & Prescriptions Reported Meds & Active Scripts Active Macrobid (Nitrofurantoin Monoh/Nitrofur Macro) 100 Mg Cap 100 Mg PO BID 7 Days Reported Pantoprazole (Pantoprazole Sodium) 40 Mg Tab 40 Mg PO DAILY Vicodin (Hydrocodone-Acetaminophen) 5-300 Mg Tab 1 Tab PO Q4H PRN Aspirin Children's (Aspirin) 81 Mg Chew 81 Mg PO DAILY Amlodipine (Amlodipine Besylate) 5 Mg Tab 10 Mg PO DAILY Leflunomide 10 Mg Tab 20 Mg PO DAILY D-2000 Maximum Strength (Cholecalciferol) 2,000 Unit Tab 2,000 Units PO BID Lovastatin 40 Mg Tab 40 Mg PO DAILY Metformin (Metformin HCl) 500 Mg Tab 500 Mg PO BID With a meal Prednisone 5 Mg Tab 5 Mg PO DAILY Refresh Tears Opth Drops (Carboxymethylcellulose Sodium Opth Drops) 0.5% Drops 1 Drop RIGHT EYE TID Review of Systems Except as stated in HPI: all other systems reviewed are Neg Physical Exam Narrative GENERAL: Pleasant, well-nourished Afro-[place]in[place] female no acute distress. SKIN: Focused skin assessment warm/dry. HEAD: Atraumatic. Normocephalic. EYES: Pupils equal and round. No scleral icterus. No injection or drainage. ENT: No nasal bleeding or discharge. Mucous membranes pink and moist. NECK: Trachea midline. No JVD. CARDIOVASCULAR: Regular rate and rhythm. No murmur appreciated. RESPIRATORY: No accessory muscle use. Clear to auscultation. Breath sounds equal bilaterally. GASTROINTESTINAL: Abdomen soft, non-tender, nondistended. Hepatic and splenic margins not palpable. MUSCULOSKELETAL: Arthritic changes in the hands characteristic of RA. No cyanosis. No edema. NEUROLOGICAL: Awake and alert. No obvious cranial nerve deficits. Motor grossly within normal limits. Normal speech. PSYCHIATRIC: Appropriate mood and affect; insight and judgment normal. Data Data Last Documented VS Vital Signs Date Time Temp Pulse Resp B/P (MAP) Pulse Ox O2 Delivery O2 Flow Rate FiO2 10/06/17 10:00 10/06/17 09:56 76 16 96 Room Air 10/06/17 07:27 98.8 Orders Orders Basic Metabolic Panel (Bmp) (10/06/17 07:59) Complete Blood Count With Diff (10/06/17 07:59) Urinalysis - C+S If Indicated (10/06/17 07:59) Iv Access Insert/Monitor (10/06/17 07:59) Ecg Monitoring (10/06/17 07:59) Oximetry (10/06/17 07:59) Sodium Chlor 0.9% 1000 Ml Inj (Ns 1000 M (10/06/17 07:59) Sodium Chloride 0.9% Flush (Ns Flush) (10/06/17 08:00) Blood Glucose (10/06/17 07:59) Urine Culture (10/06/17 09:15) Nitrofurantoin Monohyd Macrocr (Macrobid (10/06/17 10:00) Ed Discharge Order (10/06/17 09:56) Labs Laboratory Tests Test 10/06/17 08:40 10/06/17 09:15 White Blood Count 7.3 TH/MM3 Red Blood Count 4.38 MIL/MM3 Hemoglobin 12.4 GM/DL Hematocrit 37.9 % Mean Corpuscular Volume 86.6 FL Mean Corpuscular Hemoglobin 28.4 PG Mean Corpuscular Hemoglobin Concent 32.8 % Red Cell Distribution Width 12.6 % Platelet Count 312 TH/MM3 Mean Platelet Volume 7.6 FL Neutrophils (%) (Auto) 42.9 % Lymphocytes (%) (Auto) 46.7 % Monocytes (%) (Auto) 7.4 % Eosinophils (%) (Auto) 1.9 % Basophils (%) (Auto) 1.1 % Neutrophils # (Auto) 3.1 TH/MM3 Lymphocytes # (Auto) 3.4 TH/MM3 Monocytes # (Auto) 0.5 TH/MM3 Eosinophils # (Auto) 0.1 TH/MM3 Basophils # (Auto) 0.1 TH/MM3 CBC Comment DIFF FINAL Differential Comment Blood Urea Nitrogen 10 MG/DL Creatinine 0.67 MG/DL Random Glucose 340 MG/DL Calcium Level 9.2 MG/DL Sodium Level 137 MEQ/L Potassium Level 4.3 MEQ/L Chloride Level 103 MEQ/L Carbon Dioxide Level 24.7 MEQ/L Anion Gap 9 MEQ/L Estimat Glomerular Filtration Rate 103 ML/MIN Urine Color YELLOW Urine Turbidity HAZY Urine pH 5.0 Urine Specific [place] 1.008 Urine Protein NEG mg/dL Urine Glucose (UA) >=500 mg/dL Urine Ketones NEG mg/dL Urine Occult Blood NEG Urine Nitrite POS Urine Bilirubin NEG Urine Urobilinogen LESS THAN 2 mg/dL Urine Leukocyte Esterase SMALL Urine RBC 1 /hpf Urine WBC 6 /hpf Urine Squamous Epithelial Cells 3 /hpf Urine Bacteria MANY /hpf Urine Mucus FEW /lpf Microscopic Urinalysis Comment CULTURE INDICATED MDM Medical Decision Making Medical Screen Exam Complete: Yes Emergency Medical Condition: Yes Differential Diagnosis Hypertension versus hyperglycemia versus metabolic derangement versus dehydration versus UTI versus other Narrative Course 81-year-old female with PMH of HTN, DM, RA presents the ED for evaluation of elevated blood pressure and elevated blood glucose upon waking this morning. Patient states that she took her BP with a wrist monitor and it was 180/80. She also states that she checked her blood glucose and it was over 300. Patient states that she is asymptomatic. She normally takes metformin and amlodipine with her breakfast. She states that she does not regularly check her blood pressure. BP 169/80 on arrival. Physical exam is unremarkable. No focal neuro deficits. IV was established. Patient was administered 1 L normal saline. CBC: WBC 7.3. Hemoglobin 12.4. CMP: Glucose 340, GFR 103. UA: Hazy, nitrite positive, small leukocyte Estrace, 6 WBCs, many bacteria. Culture indicated. I discussed the results of the workup with the patient and her daughter. BP 158 /74 on recheck. I explained permissive hypertension and long-term risk with the patient. I recommended that she continue her at home medications as previously prescribed. She was prescribed Macrobid twice daily 7 days. She is instructed to take every antibiotic pill until they are all gone, follow with Dr. Blood, return for worsening symptoms. The patient and her daughter at bedside indicated understanding of instructions and are agreeable with the care plan. The patient is stable and discharged home. Diagnosis Primary Impression: Urinary tract infection Qualified Codes: N39.0 - Urinary tract infection, site not specified Referrals: Ellen Blood MD Additional Instructions: Rest, hydrate. Resume at home medications as previously prescribed. Make sure to take your morning medications when he got home. Begin antibiotics today and take them as prescribed until every dose is gone. Follow-up with Dr. Blood. Return to the ED for worsening symptoms or any urgent or emergent medical condition. Med/Other Pt SpecificInfo: Prescription(s) given Scripts Nitrofurantoin Monohydrate Macrocrystals (Macrobid) 100 Mg Cap 100 MG PO BID for Infection for 7 Days, #14 CAP 0 Refills Prov: Esthela Ruby MD 10/06/17 Disposition: 01 DISCHARGE HOME Condition: Stable Lisa Kaur Oct 06, 2017 08:03
[2017-10-06 08:43] VITALS: RESP 16; O2SAT 94
[2017-10-06] MEDS ORDERED: HYDR-3111 PO (08:48)
[2017-10-06] MEDS ORDERED: PANT40TA3 PO (08:48)
[2017-10-06 08:49] VITALS: BP 152/70; PULSE 72; RESP 16; O2SAT 95
[2017-10-06 08:56] LABS: AUTOMATED NEUTROPHIL # 3.1 TH/MM3 (1.8-7.7); BASOPHIL # 0.1 TH/MM3 (0-0.2); BASOPHIL % 1.1 % (0.0-2.0); EOSINOPHIL # 0.1 TH/MM3 (0-0.4); EOSINOPHIL % 1.9 % (0.0-4.0); HEMATOCRIT 37.9 % (35.0-46.0); HEMOGLOBIN 12.4 GM/DL (11.6-15.3); LYMPH % 46.7 % (9.0-44.0); LYMPHOCYTE # 3.4 TH/MM3 (1.0-4.8); MEAN CELL VOLUME 86.6 FL (80.0-100.0); MEAN CORPUSCULAR HEMOGLOBIN 28.4 PG (27.0-34.0); MEAN CORPUSCULAR HGB CONC 32.8 % (32.0-36.0); MEAN PLATELET VOLUME 7.6 FL (7.0-11.0); MONO % 7.4 % (0.0-8.0); MONOCYTE # 0.5 TH/MM3 (0-0.9); NEUT % 42.9 % (16.0-70.0); PLATELET COUNT 312 TH/MM3 (150-450); RED BLOOD COUNT 4.38 MIL/MM3 (4.00-5.30); RED CELL DISTRIBUTION WIDTH 12.6 % (11.6-17.2); WHITE BLOOD COUNT 7.3 TH/MM3 (4.0-11.0)
[2017-10-06 09:29] LABS: BICARBONATE 24.7 MEQ/L (21.0-32.0); CALCIUM 9.2 MG/DL (8.5-10.1); CREATININE 0.67 MG/DL (0.50-1.00)
[2017-10-06 09:43] LABS: BACTERIA, URINE MANY /hpf; BILIRUBIN, URINE NEG (NEG); BLOOD, URINE NEG (NEG); GLUCOSE,URINE >=500 mg/dL (NEG); KETONE, URINE NEG (NEG); MUCUS URINE FEW /lpf (OCC); NITRITE,URINE POS (NEG); SQUAMOUS EPITHELIAL CELL URINE 3 /hpf (0-5); URINE COLOR YELLOW (YELLW/STRAW); URINE LEUKOCYTE ESTERASE SMALL (NEG)
[2017-10-06] MEDS ORDERED: MACR100C2 PO (09:52)
[2017-10-06 09:56] VITALS: BP 158/74; PULSE 76; RESP 16; O2SAT 96
[2017-10-06] MEDS ORDERED: NITROFURANTOIN MONOHYD MACROCR 100 MG CAP PO ONE (10:00)
== END 2017-10-06 10:12 | disposition home or self-care (01) ==
LOC: NEPD 07:24
DX: N39.0 Urinary tract infection, site not specified (principal); B96.20 Unspecified Escherichia coli [E. coli] as the cause of diseases classified elsewhere; I10 Essential (primary) hypertension; E11.9 Type 2 diabetes mellitus without complications; M06.9 Rheumatoid arthritis, unspecified; F32.9 Major depressive disorder, single episode, unspecified; Z79.82 Long term (current) use of aspirin; Z79.899 Other long term (current) drug therapy; Z88.8 Allergy status to other drugs, medicaments and biological substances; Z88.0 Allergy status to penicillin
CPT/HCPCS: 80048; 81001; 85025; 87077; 87086; 87186; 96360; 99284; J7030